=== PATIENT | male | born 1960 | race Caucasian/White ===

== ENCOUNTER → 2017-10-18 13:43 | Outpatient (CLI) | payer MEDICARE, MEDICAID, SELFPAY | PROVIDERS: Family Provider Family Medicine Geriatric Medicine; PCP Family Medicine Geriatric Medicine; Visit Provider Family Medicine Geriatric Medicine | DX: R50.9 Fever, unspecified (principal) | CPT/HCPCS: 87633 ==

== ENCOUNTER → 2018-01-04 10:32 | Outpatient (CLI) | payer MEDICARE, MEDICAID, SELFPAY ==
--- NOTE | 2018-01-04 14:47 | RAD_ITS ---
STUDY: X-RAY - ABDOMEN/PELVIS REASON FOR EXAM: Male, 57 years old. Mentally handicapped, acting out. TECHNIQUE: Chest x-ray same date, prior chest x-ray 07/13/2016, 03/30/2016, 03/25/2016, x-ray abdomen 08/24/2013. COMPARISON: None. FINDINGS: Normal visualized lung bases. No free air. Grossly normal size and position of the solid organs of the abdomen. Moderate stool burden of large bowel, not excessive. Minimal gaseous distention of several loops of small bowel and of the proximal to mid large bowel, with no distention of the descending colon. Loop of prominent gas-filled bowel in the left lower quadrant of the abdomen is probably a loop of sigmoid. Difficult to exclude the possibility of sigmoid volvulus. The appearance is not entirely characteristics, but this sentinel loop of bowel stands out within the abdomen and should be further characterized. Scoliosis and osteopenia. Pelvic fluid was. RAD/Abdomen Single View IMPRESSION: Abnormal bowel loop in the left lower quadrant of the abdomen is nonspecific. This is probably a loop of sigmoid colon. Consider the possibility of early volvulus. A CT abdomen and pelvis with IV and oral contrast may be appropriate at this time depending upon clinical suspicions. If the abdomen is benign in presentation at this time, follow-up x-ray may be entirely appropriate for surveillance purposes. Electronically Signed: Charles Soto, at 15:45 EDT Tel , Service support ,
--- NOTE | 2018-01-04 14:48 | RAD_ITS ---
STUDY: X-RAY CHEST REASON FOR EXAM: Male, 57 years old. Mental handicap. Behavioral changes. TECHNIQUE: PA and lateral chest COMPARISON: 07/13/2016 FINDINGS: The pattern of chronic interstitial prominence in the lungs bilaterally is stable compared to prior imaging since at least 2015 and may reflect a component of pulmonary fibrosis. No prior chest CT is available for further comparison. The lungs are otherwise clear. There is no dense focal infiltrate, effusion or pneumothorax or focal suspicious lesion. No cardiomegaly. Normal mediastinal silhouette, ashish and pleural margins. Thoracolumbar scoliosis. No acute osseous process. No acute upper abdominal process is evident in limited evaluation. There is moderate gaseous distention of a loop of large bowel in the upper abdomen, nonspecific. RAD/Chest PA and Lateral IMPRESSION: Chronic interstitial changes of the lungs are stable long-term. If further characterization is desired, CT chest would be appropriate. No acute cardiopulmonary process is otherwise evident. Electronically Signed: Charles Soto, at 15:42 EDT Tel , Service support ,
[2018-01-04 17:03] LABS: Basophil# 0.03 X10^3/uL; Basophil% 0.6 % (0-1); Eosinophil# 0.12 X10^3/uL; Eosinophils% 2.4 % (0-5); Hematocrit 43.4 % (40-54); Hemoglobin 14.2 g/dl (13.0-16.5); Lymphocyte % 40.7 % (19-41); Mean Corp Hgb Conc 32.7 g/gl (32-36); Mean Corpuscular Hgb 30.3 pg (27.0-32.0); Mean Corpuscular Volume 92.5 fL (80-94); Mean Platelet Vol. 10.5 fl (6.2-12.0); Monocyte# 0.73 X10^3/uL; Monocyte% 14.9 % (0-10); Neutrophil # 2.03 X10^3/uL (2.7-7.7); Neutrophil % 41.4 % (47-70); Platelet Count 281 K/mm3 (150-450); RBC Distribution Width CV 14.1 % (11.6-14.6); RBC Distribution Width SD 46.2 fl (35.1-43.9); Red Blood Count 4.69 M/mm3 (4.6-6.2); White Blood Count 4.9 K/mm3 (4.4-11.0)
[2018-01-04 17:36] LABS: POSITIVE COUNT NO; POSITIVE DIFFERENTIAL NO; POSITIVE MORPHOLOGY NO
[2018-01-04 17:42] LABS: Anion Gap 9 (5-15); BUN 14 mg/dL (7-18); BUN/Creat Ratio 12.5 RATIO (10-20); Calcium,Total 8.9 mg/dL (8.5-10.1); Chloride 106 mmol/L (98-107); Creatinine, Serum 1.12 mg/dL (0.70-1.30); EST Glomerular Filtration Rate 71 mL/min (>60); Est Glom Filt Rate - Afr Amer 86 mL/min (>60); Glucose 133 mg/dL (74-106); Sodium Level 143 mmol/L (136-145)
== END ==
PROVIDERS: Family Provider Family Medicine Geriatric Medicine; PCP Family Medicine Geriatric Medicine; Visit Provider Family Medicine Geriatric Medicine
DX: R10.9 Unspecified abdominal pain (principal); R05 Cough; N39.0 Urinary tract infection, site not specified; R50.9 Fever, unspecified
CPT/HCPCS: 36415; 71046; 74018; 80048; 85025; 87086; 87088; 87633

== ENCOUNTER → 2018-01-24 09:16 | Outpatient (CLI) | payer MEDICARE, MEDICAID, SELFPAY ==
--- NOTE | 2018-01-24 10:21 | RAD_ITS ---
STUDY: X-RAY - ABDOMEN/PELVIS REASON FOR EXAM: Male, 57 years old. Abdominal pain TECHNIQUE: AP supine and upright views of the abdomen and pelvis. COMPARISON: January 04, 2018 FINDINGS: There is a large amount of retained stool in the rectum. There is less gaseous prominence of splenic flexure and descending colon. There appears to be wall thickening of this portion of colon. There is no demonstrated free abdominal air. The visualized liver, spleen and kidneys are grossly normal in size and morphology. Normal soft tissue structures. There are diffuse degenerative changes of the visualized lumbar spine. RAD/Abd Inc Decub and/or Erect IMPRESSION: There is a large amount of retained stool in the rectum. There is less gaseous prominence of splenic flexure and descending colon. There appears to be wall thickening of this portion of colon. Electronically Signed: Luzmaria Willis MD at 10:44 EDT , Service support ,
[2018-01-24 11:28] LABS: Absolute Lymphocyte Count 2.26 X10^3/ul (0.83-4.51); Absolute Neutrophil Count 2.4 X10^3/uL (2.0-7.7); Basophil# 0.04 X10^3/uL; Basophil% 0.7 % (0-1); Eosinophil# 0.06 X10^3/uL; Eosinophils% 1.1 % (0-5); Hematocrit 42.6 % (40-54); Hemoglobin 14.2 g/dl (13.0-16.5); Lymphocyte # 2.26 X10^3/ul (4.0); Lymphocyte % 41.9 % (19-41); Mean Corp Hgb Conc 33.3 g/gl (32-36); Mean Corpuscular Hgb 30.7 pg (27.0-32.0); Monocyte# 0.67 X10^3/uL; Monocyte% 12.4 % (0-10); Neutrophil # 2.35 X10^3/uL (2.7-7.7); Neutrophil % 43.7 % (47-70); Platelet Count 267 K/mm3 (150-450); RBC Distribution Width CV 13.8 % (11.6-14.6); RBC Distribution Width SD 45.5 fl (35.1-43.9); Red Blood Count 4.63 M/mm3 (4.6-6.2); White Blood Count 5.4 K/mm3 (4.4-11.0)
[2018-01-24 11:31] LABS: POSITIVE COUNT NO; POSITIVE DIFFERENTIAL NO; POSITIVE MORPHOLOGY NO
[2018-01-24 11:44] LABS: ALB/GLOB Ratio 0.8 RATIO (0.9-2.4); AST(SGOT) 17 U/L (15-37); Alanine Aminotransfer ALT/SGPT 27 U/L (16-61); Albumin, Serum 3.5 g/dL (3.2-5.0); Alkaline Phosphatase 56 U/L (45-117); Anion Gap 4 (5-15); BUN 18 mg/dL (7-18); BUN/Creat Ratio 15.4 RATIO (10-20); Chloride 106 mmol/L (98-107); Creatinine, Serum 1.17 mg/dL (0.70-1.30); EST Glomerular Filtration Rate 68 mL/min (>60); Est Glom Filt Rate - Afr Amer 82 mL/min (>60); Globulin 4.4 g/dL (2.2-4.2); Glucose 68 mg/dL (74-106); PSA,Total- Diagnostic 0.12 ng/mL (0.0-4.0); Protein, Total 7.9 g/dL (6.4-8.2); Sodium Level 140 mmol/L (136-145); Thyroid Stim Hormone (TSH) 2.07 uIU/mL (0.358-3.74)
[2018-01-24 11:50] LABS: Vitamin D,25 Hydroxy 41.4 ng/mL (29.95-100.01)
[2018-01-25 15:16] LABS: Hep C Antibodies 0.1 s/co ratio (0.0-0.9)
== END ==
PROVIDERS: Family Provider Family Medicine Geriatric Medicine; PCP Family Medicine Geriatric Medicine; Visit Provider Family Medicine Geriatric Medicine
DX: R10.9 Unspecified abdominal pain (principal); E11.9 Type 2 diabetes mellitus without complications; E55.9 Vitamin D deficiency, unspecified; I10 Essential (primary) hypertension; Z12.5 Encounter for screening for malignant neoplasm of prostate; Z13.89 Encounter for screening for other disorder
CPT/HCPCS: 36415; 74019; 80053; 82306; 84153; 84443; 85025; 86803; 87086; 87088

== ENCOUNTER → 2018-07-25 15:04 | Outpatient (CLI) | payer MEDICARE, MEDICAID, SELFPAY ==
[2018-07-25 16:20] LABS: Vitamin D,25 Hydroxy 34.1 ng/mL (29.95-100.01)
[2018-07-25 16:33] LABS: ALB/GLOB Ratio 0.8 RATIO (0.9-2.4); AST(SGOT) 19 U/L (15-37); Alanine Aminotransfer ALT/SGPT 48 U/L (16-61); Albumin, Serum 3.5 g/dL (3.2-5.0); Alkaline Phosphatase 60 U/L (45-117); Anion Gap 11 (5-15); BUN 19 mg/dL (7-18); BUN/Creat Ratio 15.3 RATIO (10-20); Calcium,Total 9.2 mg/dL (8.5-10.1); Chloride 108 mmol/L (98-107); Creatinine, Serum 1.24 mg/dL (0.70-1.30); EST Glomerular Filtration Rate 63 mL/min (>60); Est Glom Filt Rate - Afr Amer 76 mL/min (>60); Globulin 4.6 g/dL (2.2-4.2); Glucose 121 mg/dL (74-106); Potassium 4.1 mmol/L (3.5-5.1); Protein, Total 8.1 g/dL (6.4-8.2); Sodium Level 144 mmol/L (136-145)
[2018-07-25 16:34] LABS: Absolute Lymphocyte Count 1.59 X10^3/ul (0.83-4.51); Absolute Neutrophil Count 1.4 X10^3/uL (2.0-7.7); Basophil# 0.02 X10^3/uL; Basophil% 0.5 % (0-1); Eosinophils% 2.7 % (0-5); Hematocrit 43.3 % (40-54); Hemoglobin 13.6 g/dl (13.0-16.5); Lymphocyte # 1.59 X10^3/ul (4.0); Lymphocyte % 43.7 % (19-41); Mean Corp Hgb Conc 31.4 g/gl (32-36); Mean Corpuscular Hgb 30.5 pg (27.0-32.0); Mean Corpuscular Volume 97.1 fL (80-94); Mean Platelet Vol. 10.9 fl (6.2-12.0); Monocyte# 0.58 X10^3/uL; Monocyte% 15.9 % (0-10); Neutrophil # 1.35 X10^3/uL (2.7-7.7); Neutrophil % 37.2 % (47-70); POSITIVE COUNT NO; POSITIVE DIFFERENTIAL NO; POSITIVE MORPHOLOGY NO; Platelet Count 254 K/mm3 (150-450); RBC Distribution Width CV 13.8 % (11.6-14.6); RBC Distribution Width SD 48.1 fl (35.1-43.9); Red Blood Count 4.46 M/mm3 (4.6-6.2); White Blood Count 3.6 K/mm3 (4.4-11.0)
== END ==
PROVIDERS: Family Provider Family Medicine Geriatric Medicine; PCP Family Medicine Geriatric Medicine; Visit Provider Family Medicine Geriatric Medicine
DX: E11.9 Type 2 diabetes mellitus without complications (principal); E55.9 Vitamin D deficiency, unspecified; I10 Essential (primary) hypertension
CPT/HCPCS: 36415; 80053; 82306; 84443; 85025

== ENCOUNTER → 2018-09-02 10:21 | Outpatient (CLI) | payer MEDICARE, MEDICAID, SELFPAY ==
[2018-09-02 12:30] LABS: Absolute Lymphocyte Count 1.46 X10^3/ul (0.83-4.51); Absolute Neutrophil Count 1.4 X10^3/uL (2.0-7.7); Basophil# 0.03 X10^3/uL; Basophil% 0.8 % (0-1); Eosinophil# 0.09 X10^3/uL; Eosinophils% 2.3 % (0-5); Hematocrit 41.2 % (40-54); Hemoglobin 13.1 g/dl (13.0-16.5); Lymphocyte # 1.46 X10^3/ul (4.0); Lymphocyte % 36.6 % (19-41); Mean Corp Hgb Conc 31.8 g/gl (32-36); Mean Corpuscular Hgb 30.3 pg (27.0-32.0); Mean Corpuscular Volume 95.4 fL (80-94); Mean Platelet Vol. 10.6 fl (6.2-12.0); Monocyte# 1.04 X10^3/uL; Monocyte% 26.1 % (0-10); Neutrophil # 1.36 X10^3/uL (2.7-7.7); Neutrophil % 33.9 % (47-70); Platelet Count 250 K/mm3 (150-450); RBC Distribution Width CV 13.2 % (11.6-14.6); Red Blood Count 4.32 M/mm3 (4.6-6.2)
[2018-09-02 12:42] LABS: POSITIVE COUNT NO; POSITIVE DIFFERENTIAL NO; POSITIVE MORPHOLOGY NO
[2018-09-02 12:50] LABS: ALB/GLOB Ratio 0.8 RATIO (0.9-2.4); AST(SGOT) 20 U/L (15-37); Alanine Aminotransfer ALT/SGPT 37 U/L (16-61); Albumin, Serum 3.5 g/dL (3.2-5.0); Alkaline Phosphatase 57 U/L (45-117); Anion Gap 5 (5-15); BUN 17 mg/dL (7-18); Calcium,Total 8.6 mg/dL (8.5-10.1); Chloride 109 mmol/L (98-107); Creatinine, Serum 1.31 mg/dL (0.70-1.30); EST Glomerular Filtration Rate 59 mL/min (>60); Est Glom Filt Rate - Afr Amer 72 mL/min (>60); Globulin 4.3 g/dL (2.2-4.2); Glucose 80 mg/dL (74-106); Potassium 4.2 mmol/L (3.5-5.1); Protein, Total 7.8 g/dL (6.4-8.2); Sodium Level 139 mmol/L (136-145); Thyroid Stim Hormone (TSH) 2.97 uIU/mL (0.358-3.74)
== END ==
PROVIDERS: Family Provider Family Medicine Geriatric Medicine; PCP Family Medicine Geriatric Medicine; Visit Provider Family Medicine Geriatric Medicine
DX: F05 Delirium due to known physiological condition (principal)
CPT/HCPCS: 36415; 80053; 84443; 85025

== ENCOUNTER 2018-11-01 18:35 | Emergency (ER) | payer MEDICARE, MEDICAID, SELFPAY ==
[2018-11-01 18:38] VITALS: BP 138/100; PULSE 100; RESP 18; TEMP 36.8; O2SAT 95; BMI 27.8
--- NOTE | 2018-11-01 18:53 | RAD_ITS ---
STUDY: X-RAY - RIGHT SHOULDER REASON FOR EXAM: Male, 58 years old. Injury and pain TECHNIQUE: 2 view(s) of the shoulder. COMPARISON: None. FINDINGS: Comminuted fracture of the proximal humerus centered at the level of the surgical neck. Degenerative glenohumeral changes. Calcific tendinitis of the right shoulder. Soft tissue swelling. RAD/Shoulder min 2 Views IMPRESSION: Comminuted fracture of the proximal humerus centered at the level of the surgical neck. Electronically Signed: Chang Bauer MD at 19:14 EDT Tel , Service support ,
--- NOTE | 2018-11-01 21:07 | ED.DCSUM_ITS ---
- ER Visit Summary Date of Service: 11/01/18 Chief Complaint: Right shoulder pain History of Present Illness: The patient is a 58 M with profound mental retardation. He presents from his care home. He had outpatient x-rays of his right shoulder that showed a fracture. snf staff and family think the patient may have fallen this week. He may have landed on his right shoulder. They are not sure how he injured his shoulder, and the patient only speaks a couple words. He is not able to elaborate. Otherwise he has been acting normally. No other apparent pain or issues. Physical Examination: Afebrile and vitals unremarkable. Head and neck atraumatic. Right shoulder is mildly swollen. Compartments are soft. There is some ecchymosis noted around his proximal and mid upper arm. He is neurovascular intact distally. Elbow and distal structures are atraumatic and n ontender. Left upper extremity atraumatic. Chest is nontender. Heart regular. Lungs clear. Abdomen soft. Back nontender. Lower extremities atraumatic. Test Results: X-rays of the shoulder show a comminuted humeral head fracture, with a fracture through the surgical neck. Emergency Department Course and Treatment: X-rays discussed with Dr. Nobles. Patient placed in a sling. Treated with pain medicine. Referred for outpatient follow-up. Treatment Plan: As above Disposition: Discharge Impression: 1. Right proximal humerus fracture This note was generated with [email or web address] dictation software. It may contain incorrect words, spelling, and punctuation that were not noted in review of the chart prior to signing ED Disposition - Plan for ED Patient: Disposition: Home or Assisted Living Instructions: ED Fx Shoulder Prescriptions: Hydrocodone Bitart/Apap 5-325 [[place] 5MG-325MG] 1 tab PO Q6H PRN PRN 3 Days #10 tab PRN Reason: Pain Referrals: Jaylene Nobles DO [STAFF PHYSICIAN] -
--- NOTE | 2018-11-01 21:07 | ED.DEP ---
ED Disposition - Plan for ED Patient: Instructions: ED Fx Shoulder Prescriptions: Hydrocodone Bitart/Apap 5-325 [[place] 5MG-325MG] 1 tab PO Q6H PRN PRN 3 Days #10 tab PRN Reason: Pain Referrals: Jaylene Nobles DO [STAFF PHYSICIAN] -
[2018-11-01 21:28] VITALS: BP 131/78; PULSE 69; RESP 16; O2SAT 98
== END 2018-11-01 21:29 | disposition home or self-care (01) ==
PROVIDERS: Emergency Provider Emergency Medicine; Family Provider Family Medicine; PCP Family Medicine
DX: S42.201A Unspecified fracture of upper end of right humerus, initial encounter for closed fracture (principal); S42.211A Unspecified displaced fracture of surgical neck of right humerus, initial encounter for closed fracture; X58.XXXA Exposure to other specified factors, initial encounter; Y93.9 Activity, unspecified; Y92.9 Unspecified place or not applicable; F79 Unspecified intellectual disabilities; E11.9 Type 2 diabetes mellitus without complications; G40.909 Epilepsy, unspecified, not intractable, without status epilepticus; N40.0 Benign prostatic hyperplasia without lower urinary tract symptoms; Z79.84 Long term (current) use of oral hypoglycemic drugs; Z79.899 Other long term (current) drug therapy
CPT/HCPCS: 73030; 99283

== ENCOUNTER → 2018-11-10 | Outpatient (CLI) | payer MEDICARE, MEDICAID, SELFPAY ==
[2018-11-10 10:13] VITALS: BMI 27.8
--- NOTE | 2018-11-10 10:15 | RAD_ITS ---
STUDY: X-RAY - RIGHT SHOULDER REASON FOR EXAM: Male, 58 years old. Fall, fracture TECHNIQUE: 3 view(s) of the shoulder. COMPARISON: 11/01/2018 FINDINGS: There is moderate degenerative arthrosis of the glenohumeral articulation. Normal acromioclavicular joint. Normal acromion. No significant change of impacted comminuted fracture of the humeral neck. Small osseous fragments along the fracture site and at the glenohumeral space. There is generalized osteopenia. There is soft tissue swelling. Normal visualized pulmonary apex. RAD/Shoulder min 2 Views IMPRESSION: No significant change of comminuted fracture proximal humeral neck. Osteopenia. Moderate degenerative changes of the glenohumeral joint. Osseous fragment in the humeral acromial space. Electronically Signed: Mary Broderick MD at 23:09 EDT , Service support ,
== END | disposition home or self-care (01) ==
PROVIDERS: Family Provider Family Medicine; PCP Family Medicine; Visit Provider Physician Assistant
DX: S42.211A Unspecified displaced fracture of surgical neck of right humerus, initial encounter for closed fracture (principal)
CPT/HCPCS: 73030

== ENCOUNTER → 2018-11-10 | Outpatient (CLI) | payer MEDICARE, MEDICAID, SELFPAY ==
[2018-11-03 09:50] VITALS: BMI 27.8
== END | disposition home or self-care (01) ==
LOC: HPRAD 10:10
PROVIDERS: Family Provider Family Medicine; PCP Family Medicine; Referring Provider Physician Assistant; Visit Provider Physician Assistant
DX: Z00.00 Encounter for general adult medical examination without abnormal findings (principal)

== ENCOUNTER → 2018-11-25 | Outpatient (CLI) | payer MEDICARE, MEDICAID, SELFPAY ==
[2018-11-10 10:13] VITALS: BMI 27.8
--- NOTE | 2018-11-25 09:18 | RAD_ITS ---
STUDY: X-RAY - RIGHT SHOULDER REASON FOR EXAM: Male, 58 years old. Follow-up fracture TECHNIQUE: 3 view(s) of the shoulder. COMPARISON: 11/10/2018 FINDINGS: Normal glenohumeral articulation. Normal acromioclavicular joint. Normal acromion. Healing impacted fracture of the humeral neck with callus formation. The soft tissue structures are unremarkable. Normal visualized pulmonary apex. RAD/Shoulder min 2 Views IMPRESSION: Healing impacted humeral neck fracture. Electronically Signed: Charles Crabtree MD at 15:54 EDT Tel , Service support ,
== END | disposition home or self-care (01) ==
LOC: HPRAD 09:15
PROVIDERS: Family Provider Family Medicine; PCP Family Medicine; Referring Provider Physician Assistant; Visit Provider Physician Assistant
DX: S42.224D 2-part nondisplaced fracture of surgical neck of right humerus, subsequent encounter for fracture with routine healing (principal)
CPT/HCPCS: 73030

== ENCOUNTER → 2018-12-26 | Outpatient (CLI) | payer MEDICARE, MEDICAID, SELFPAY ==
[2018-11-25 09:27] VITALS: BMI 27.8
--- NOTE | 2018-12-26 09:20 | RAD_ITS ---
STUDY: X-RAY - RIGHT SHOULDER REASON FOR EXAM: Male, 58 years old. Fracture TECHNIQUE: 2 view(s) of the shoulder. COMPARISON: 25 December 2018 FINDINGS: Acromioclavicular joint is located. Glenohumeral joint is located. There is subacute impacted healing fracture of the humeral neck with osteoneogenesis. Mineralization is low. Appearance is similar to prior. RAD/Shoulder min 2 Views IMPRESSION: Subacute stage union in progress of proximal humeral fracture. Osteoporosis. Electronically Signed: Chris Ly, at 18:08 EDT Tel , Service support ,
== END | disposition home or self-care (01) ==
LOC: HPRAD 09:19
PROVIDERS: Family Provider Family Medicine; PCP Family Medicine; Visit Provider Physician Assistant
DX: S42.224D 2-part nondisplaced fracture of surgical neck of right humerus, subsequent encounter for fracture with routine healing (principal)
CPT/HCPCS: 73030

== ENCOUNTER → 2019-01-11 | Outpatient (CLI) | payer MEDICARE, MEDICAID, SELFPAY ==
[2018-11-25 09:27] VITALS: BMI 27.8
[2018-12-26 09:53] VITALS: BMI 27.8
--- NOTE | 2019-01-11 13:30 | SP.MBSS_ITS ---
PRIMARY / SECONDARY DIAGNOSIS: dysphagia (R13.10) REFERRING PHYSICIAN: Dr. Edilson Bhakta MD CURRENT DIET: mechanical soft textures, honey thickened liquids DENTITION: natural; suboptimal MENTAL STATUS: impaired RESPIRATORY STATUS: O2 via room air REASON FOR REFERRAL: The Patient is a 58 year old male referred for a modified barium swallow (MBS) study to objectively assess the Patients oropharyngeal swallow function under fluoroscopy to assess current diet texture tolerance and appropriateness for PO diet texture upgrade. Patients caregivers present, Patient notably cognitively impaired due to non-specific developmental event; no changes in PO intake abilities reported by caregiver. MEDICAL HISTORY: Unspecified anoxic event, developmentally disabled with severe intellectual disability and chronic nonverbal status, moderate oropharyngeal dysphagia, history of a cerebrovascular accident, hypertension, hyperlipidemia, type II diabetes mellitus, benign prostate hyperplasia, chronic constipation, insomnia, and fatigue. PREVIOUS MODIFIED BARIUM SWALLOW STUDY: 12/18/2018 MBS revealed moderate oropharyngeal dysphagia (DSRS: 4; SPS: 4) with consistent deep penetration (thin liquids) and shallow penetration (nectar thickened liquids) without complete ejection. ASSESSMENT PARAMETERS: The Patient participated in a Modified Barium Swallow (MBS) study on 01/11/2019. Dr. Faustin was the radiologist present for this evaluation. This study was recorded in the lateral view and images were sent to PACs for storage. Scoring was completed through each trial using the 8-point Penetration-Aspiration Scale (PAS) and Videofluoroscopic Scale Score (VSS), and summarized via the Modified Barium Swallow Impairment Profile (MBSImP), with severity scoring through the Dysphagia Severity Rating Scale (DSRS) and the Swallowing Performance Scale (PSP), and recommended diet textures through the International Dysphagia Diet Standardisation Initiative (IDDSI). RESULTS OF THE EVALUATION: The Patient presents with moderate oropharyngeal dysphagia (DSRS: 4; SPS: 5) with grade III SILENT aspiration of thin liquids and grade III overt aspiration of nectar thickened liquids. OBJECTIVE ASSESSMENT OF SWALLOW FUNCTION (QUANTITATIVE ? PER TRIAL): PENETRATION / ASPIRATION SCALE (CHRISTIE): 1 = does not enter airway 2 = enters airway/above vocal folds/ejected 3 = enters airway/above vocal folds/not ejected 4 = enters airway/contacts vocal folds/ejected 5 = enters airway/contacts vocal folds/not ejected 6 = enters airway/below vocal folds/ejected 7 = enters airway/below vocal folds/not ejected despite effort 8 = enters airway/below vocal folds/no effort VIDEOFLOROSCOPIC SCALE SCORE (CHRISTIE): Grade I = aspiration of material that has penetrated into the laryngeal vestibule, intact cough reflex Grade II = aspiration < 10 % of the bolus, intact cough reflex Grade III = aspiration of < 10 % of the bolus, reduced cough reflex or aspiration of > 10 % of the bolus, intact cough reflex Grade IV = aspiration of > 10 % of the bolus, reduced cough reflex PENETRATION / ASPIRATION SCALE (SCORE) WITH VIDEOFLOROSCOPIC SCALE SCORE: Thin liquid - 5 mL tsp.: 1 Thin liquids via cup (single sip): 8 - Grade III Prosser thickened liquids via cup (single sip): 1 Prosser thickened liquids via cup (single sip): 7 - Grade III Honey thickened liquids via cup (single sip): 1 Honey thickened liquids via cup (single sip): 1 Honey thickened liquids via cup (single sip): 1 Pudding via spoon: 1 Regular textured cookie: 1 Honey thickened liquids via cup (single sip): 1 Honey thickened liquids via cup (single sip): 1 OBJECTIVE ASSESSMENT OF SWALLOW FUNCTION (QUANTITATIVE ? AGGREGATE): MODIFIED BARIUM SWALLOW IMPAIRMENT PROFILE (MBSImP) LABIAL SEAL: 4 (of 4) escape beyond mid chin TONGUE CONTROL: 2 (of 3) posterior escape < 50% BOLUS PREPARATION / MASTICATION: 1 (of 3) slow prolonged; complete recollection BOLUS TRANSPORT / LINGUAL MOTION: 1 (of 4) delayed initiation of motion ORAL RESIDUE: 1 (of 4) trace residue lining oral structures INITIATION OF PHARYNGEAL SWALLOW: 2 (of 4) posterior surface of epiglottis SOFT PALATE ELEVATION: 0 (of 4) no bolus between soft palate & pharyngeal wall LARYNGEAL ELEVATION: 1 (of 3) partial superior movement / approximation ANTERIOR HYOID EXCURSION: 1 (of 2) partial movement EPIGLOTTIC MOVEMENT: 1 (of 2) partial inversion LARYNGEAL VESTIBULE CLOSURE: 1 (of 2) incomplete closure PHARYNGEAL STRIPPING WAVE: 0 (of 2) present / complete PE SEGMENT OPENIN (of 3) complete distension / duration; no obstruction TONGUE BASE RETRACTION: 1 (of 4) trace column of contrast PHARYNGEAL RESIDUE: 1 (of 4) trace residue ESOPHAGEAL BOLUS CLEARANCE: could not view DYSPHAGIA SEVERITY RATING SCALE (DSRS): 4 (moderate) SWALLOWING PERFORMANCE SCALE (SPS): 5 (moderate) OBJECTIVE ASSESSMENT OF SWALLOW FUNCTION (QUALITATIVE): ORAL PREPARATORY PHASE: mild (albeit effective) mastication inefficiency with prolonged mastication; impaired anterior bolus containment during oral presentation / oral manipulation with intermittent albeit significant anterior bolus loss; preserved management of breathing / bolus formation. ORAL TRANSITIONAL PHASE: intermittent oral phase swallow onset delay (3 seconds in length max); overall sufficient oral clearance; intermittent premature posterior bolus loss. PHARYNGEAL PHASE: pharyngeal swallow dyssynchrony resulting in pre-prandial penetration and subsequent aspiration of thin and nectar thickened liquids; mild reduction in hyolaryngeal excursion resulting in inconsistent laryngeal vestibule pressure generated to expel penetrated material; no signs of pharyngeal dysmotility; no signs of velopharyngeal impairments; ESOPHAGEAL PHASE: no obvious esophageal phase abnormalities observed. CONTRIBUTING / COMPLICATING FACTORS AND NOTABLE FINDINGS: weak cued volitional cough intensity generated to expel penetrated material (dystussia); absent cough in response to tracheobronchial aspiration of thin liquids (atussia) with a rather weak and delayed cough response to aspiration of nectar thickened liquids (dystussia). RESPONSE TO STRATEGIES: unable to follow directions to execute under fluoroscopy. INTERVENTION RECOMMENDATIONS AND CONSIDERATIONS: The Patient was noted to SILENTLY aspirate with thin liquids, with clinical assessment at bedside relying on identification of classic overt signs and symptoms of aspiration considered unreliable; response to aspiration of nectar thickened liquids was quite delayed (~5-10 seconds post event) and inadequate in regards to intensity, would also question the sufficiency of informal assessment methods with this viscosity. Results overall very similar to prior study, with exception of visualized aspiration. Would consider further skilled speech-language intervention targeting diet texture management and training / implementation of recommended compensatory strategies; and Patient / caregiver education regarding safe PO intake strategies (visual cueing, consistently, visual models). POST ASSESSMENT EDUCATION: Results and recommendations were discussed with the Patient and Patients caregiver immediately following MBS completion, with the Patients caregiver verbalizing understanding and agreement with all recommendations and education provided. DIET TEXTURE RECOMMENDATIONS: Will recommend a mechanical soft textured (IDDSI: 5), honey thickened liquid (IDDSI: 3) diet RECOMMENDED COMPENSATORY STRATEGIES: Direct supervision, consider cutting tougher textures into bite sized pieces, reduced bolus volume / rate of ingestion, seated upright at 90 degrees during PO intake, remain upright for 30-60 minutes post meal (GERD precaution) IMAGE COUNT: [id number] Bg Powers M.A., [employer] ENGINEER MBSImP Certified, LSVT Certified [facility] Speech-Language Pathology Department [email or web address]
--- NOTE | 2019-01-11 14:00 | RAD_ITS ---
STUDY: SWALLOWING STUDY REASON FOR EXAM: Male, 58 years old. Dysphagia TECHNIQUE: The examination was performed with Speech Pathology in attendance. Under fluoroscopic observation, the patient ingested thin barium, thick barium, barium pudding, and barium coated cracker. FLUOROSCOPY TIME: 0:02 minutes/seconds RADIOLOGIST INVOLVEMENT: Radiologist was not present during the procedure, but did review the images. COMPARISON: None. FINDINGS: The following was observed during swallowing of the various mixtures of barium: Thin Barium: There was one episode of jeffrey silent aspiration with thin barium when it was ingested to help clear the barium coated cracker. When patient swallowed only thin barium, there was early pharyngeal penetration but no jeffrey aspiration noted. Thick Barium: There was no evidence of aspiration or laryngeal penetration. Barium Pudding: There was no evidence of aspiration or laryngeal penetration. Barium Coated Cracker: There was no evidence of aspiration or laryngeal penetration. RAD/Swallowing Function w/Video IMPRESSION: 1 episode of silent aspiration with thin barium noted. The swallow study findings were discussed with the patient by the speech pathologist at the conclusion of the examination. Please see speech pathology report for more information and recommendations. The procedure was performed by Bg William speech therapist Electronically Signed: Nasim Faustin MD at 14:33 EDT , Service support ,
== END | disposition home or self-care (01) ==
PROVIDERS: Family Provider Family Medicine; PCP Family Medicine; Referring Provider Family Medicine; Visit Provider Family Medicine
DX: R13.10 Dysphagia, unspecified (principal)
CPT/HCPCS: 74230; 92611

== ENCOUNTER → 2020-08-21 15:00 | Outpatient (CLI) | payer MEDICARE, MEDICAID, SELFPAY ==
[2020-08-08 11:15] VITALS: BMI 26.1
--- NOTE | 2020-08-21 15:04 | CT_ITS ---
STUDY: CT BRAIN WITHOUT CONTRAST REASON FOR EXAM: Male, 60 years old. mental retardation; epilepsy RADIATION DOSAGE (If Supplied By Facility): CTDIvol = ( 44.99 ) mGy, DLP = ( 880.47 ) mGycm TECHNIQUE: Transaxial CT imaging of the brain was performed without administration of intravenous contrast material. Individualized dose optimization techniques were used for this CT. COMPARISON: CT head 09/30/2010 FINDINGS: Normal soft tissue structures. Normal calvarium. There is moderate cerebral atrophy with widening of the extra-axial spaces and ventricular dilatation. There are areas of decreased attenuation within the white matter tracts of the supratentorial brain, consistent with microvascular disease changes. Normal basal ganglia and thalami. Normal brainstem. Normal cerebellum. There is no intracranial hemorrhage. There are no findings of an acute ischemic infarction. Normal visualized paranasal sinuses. CT/Brain/Head without Contrast IMPRESSION: Chronic involutional changes of the brain. Electronically Signed: Liu Parry MD at 15:56 EST Tel , Service support ,
== END ==
PROVIDERS: PCP Family Medicine; Referring Provider Psychiatry & Neurology Neurology; Visit Provider Psychiatry & Neurology Neurology
DX: F48.9 Nonpsychotic mental disorder, unspecified (principal); F69 Unspecified disorder of adult personality and behavior; G40.909 Epilepsy, unspecified, not intractable, without status epilepticus
CPT/HCPCS: 70450

== ENCOUNTER → 2020-10-04 13:12 | Outpatient (CLI) | payer MEDICARE, MEDICAID, SELFPAY ==
[2020-08-08 11:15] VITALS: BMI 26.1
--- NOTE | 2020-10-04 13:42 | ST.MBS ---
Modified Barium Swallow - Patient Information Study Date: 10/04/20 Study Time: 13:00 Direct Billable Minutes: 120 Total Minutes procedure & reportin Diagnosis: oropharyngeal dysphagia (R13.12) Referring Physician: Edilson Bhakta Reason for Referral: The patient was referred for a repeat modified barium swallow (MBS) study to objectively assess oropharyngeal swallow function under fluoroscopy and determine presence and/or degree of aspiration. Patients caregiver, Tamica present. Medical History: Patient is a 60/m with a past medical history of diabetes mellitus, epilepsy, frequent urinary tract infections, profound mental retardation, depression, anxiety and behavior disorder. At pt's baseline, his ability to verbalize is very limited. Pt has difficulty following commands. Pt has history of dysphagia and is currently on a mechanical soft dietnectar thickened liquid diet per caregiver. Previous MBS study was completed at [facility] in December 2018 recommending honey (moderately) thickened liquids and mechanical soft textures. Current Diet Ordered: mechanical soft textures/honey thick liquids Dentition: Natural Teeth - only upper natural teeth present; edentulous on bottom, Missing Teeth Mental Status: Impaired Respiratory Status: Oxygenating on Room Air - Study Findings Consistencies: Thin Liquid, [place] Thick Liquid, Honey Thick Liquid, Pudding, Cookie - Penetration-Aspiration Scale Penetration-Aspiration Scale: OBJECTIVE ASSESSMENT OF SWALLOW FUNCTION (QUANTITATIVE ? PER TRIAL): PENETRATION / ASPIRATION SCALE (CHRISTIE): 1 = does not enter airway 2 = enters airway/above vocal folds/ejected 3 = enters airway/above vocal folds/not ejected 4 = enters airway/contacts vocal folds/ejected 5 = enters airway/contacts vocal folds/not ejected 6 = enters airway/below vocal folds/ejected 7 = enters airway/below vocal folds/not ejected despite effort 8 = enters airway/below vocal folds/no effort - Penetration-Aspiration Scale Score Thin Liquid via teaspoon Result: 1= does not enter airway Thin Liquid via teaspoon Trial 2 Result: 4= enters airway/contacts vocal folds/ejected Thin Liquid via sequential sips from cup Result: 5= enters airways/contacts vocal folds/not ejected - pt cued for small single sip but was unable to follow command [place]grass Thick Liquid via large single sip from cup Result: 5= enters airways/contacts vocal folds/not ejected Honey Thick Liquid via large single sip from cup Result: 5= enters airways/contacts vocal folds/not ejected Pudding via teaspoon Result: 1= does not enter airway Cookie Result: 1= does not enter airway Honey Thick Liquid via small single sip from cup Result: 1= does not enter airway - Oral Phase Labial Seal: Escape beyond mid-chin Tongue Control During Bolus Hold: Posterior escape of less than half of bolus Bolus Preparation/Mastication: Slow prolonged chewing/mashing with complete recollection Bolus Transport/Lingual Motion: Slowed tongue motion Oral Residue: Residue collection on oral structures - Pharyngeal Phase Initiation of Pharyngeal Swallow: Bolus head at posterior laryngeal surgace of epiglottis Soft Palate Elevation: No bolus between soft palate and pharyngeal wall Laryngeal Elevation: Partial superior movement thyroid cart/partial apprx aryt-epig petiole Anterior Hyoid Excursion: Partial anterior movement Epiglottic Movement: Partial inversion Laryngeal Vestibule Closure at Height of Swallow: Incomplete; narrow column of air/contrast in laryngeal vestibule Pharyngeal Stripping Wave: Present - diminished Pharyngoesophageal Segment Opening: Parital distension and partial duration; parital obstruction of flow Tongue Base Retraction: Narrow column of contrast between tongue base & post. pharyngeal wall Pharyngeal Residue: Trace residue within or on pharyngeal structures - Esophageal Phase Esophageal Clearance: Esophageal retention - Diagnosis/Impression Diagnosis: moderate-severe oropharyngeal dysphagia (R13.12) Impression: The Patient was noted to have penetration to the vocal cords without ejection with thin liquid, nectar thick liquid, and honey thick liquid trials. When smaller sip of honey thickened liquid was consumed there was no aspiration or penetration present. However, pt unable to follow commands to take smaller sips and did so randomly. The patient demonstrated slowed mastication of solid Yasmin Doone cookie with mild oral residue remaining. Would consider further skilled speech-language intervention targeting diet texture management and training, compensatory strategy training for both patient and caregivers, and teaching of use of volume control cup (i.e. Provale cup) to limit sip sizes for safer swallowing and decrease risk of aspiration. - Recommendations Diet: Honey-thick Liquids Comment: minced and moist textures (IDDSI 5) Compensatory Strategies: Small Bites, Small Sips, No Straws, Slow Rate, Sitting upright, Remain sitting upright for 30 minutes after PO intake, Minimize/decrease distractions Supervision: 1:1 Close Supervision Recommend Repeat Modified Barium Swallow: TBD Need for Skilled Speech Therapy Services: Yes Education Completed: 1. Described result of evaluation. - Status Active ST Patient: Active - Contact Information [facility] Speech Therapy:: Rosetta Gillespie MA, CCC-[employer]CURY RECOVERER [address] [id number] [email or web address]
[2020-10-04 15:22] LABS: Hematocrit 40.8 % (40-54); Hemoglobin 12.7 g/dL (13.0-16.5); Mean Corp Hgb Conc 31.1 g/dL (32-36); Mean Corpuscular Hgb 30.2 pg (27.0-32.0); Mean Corpuscular Volume 96.9 fL (80-94); Mean Platelet Vol. 10.6 fl (6.2-12.0); Platelet Count 248 K/mm3 (150-450); RBC Distribution Width CV 13.5 % (11.6-14.6); RBC Distribution Width SD 47.9 fl (35.1-43.9); Red Blood Count 4.21 M/mm3 (4.6-6.2); White Blood Count 3.6 K/mm3 (4.4-11.0)
[2020-10-04 15:51] LABS: Valproic Acid (Depakene) Level 72 ug/mL (50-100)
[2020-10-04 16:15] LABS: ALB/GLOB Ratio 0.7 RATIO (0.9-2.4); AST(SGOT) 18 U/L (15-37); Alanine Aminotransfer ALT/SGPT 22 U/L (16-61); Albumin, Serum 3.1 g/dL (3.2-5.0); Alkaline Phosphatase 89 U/L (45-117); Anion Gap 6 (5-15); BUN 18 mg/dL (7-18); BUN/Creat Ratio 16.1 RATIO (10-20); Calcium,Total 8.6 mg/dL (8.5-10.1); Chloride 105 mmol/L (98-107); Creatinine, Serum 1.12 mg/dL (0.70-1.30); EST Glomerular Filtration Rate 71 mL/min (>60); Est Glom Filt Rate - Afr Amer 85 mL/min (>60); Globulin 4.7 g/dL (2.2-4.2); Glucose 85 mg/dL (74-106); Potassium 3.9 mmol/L (3.5-5.1); Protein, Total 7.8 g/dL (6.4-8.2); Sodium Level 138 mmol/L (136-145); Thyroid Stim Hormone (TSH) 2.06 uIU/mL (0.358-3.74)
[2020-10-04 16:21] LABS: Vitamin B12 535 pg/mL (211-911)
[2020-10-08 15:56] LABS: Vitamin D 1,25-Dihydroxy 58.1 pg/mL (19.9-79.3)
[2020-10-12 12:07] LABS: Vitamin B1, Thiamine 142.3 nmol/L (66.5-200.0)
[2020-10-12 12:35] LABS: Trileptal-Oxcarbazepine 19 ug/mL (10-35)
== END ==
PROVIDERS: Psychiatry & Neurology Neurology; PCP Family Medicine; Referring Provider Family Medicine; Visit Provider Family Medicine
DX: R13.12 Dysphagia, oropharyngeal phase (principal); G40.909 Epilepsy, unspecified, not intractable, without status epilepticus; F73 Profound intellectual disabilities; F41.9 Anxiety disorder, unspecified; G21.11 Neuroleptic induced parkinsonism
CPT/HCPCS: 36415; 74230; 80053; 80164; 82140; 82542; 82607; 82652; 82746; 84425; 84443; 85027; 92611

== ENCOUNTER 2021-04-02 20:32 | Emergency (ER) | payer MEDICARE, MEDICAID, SELFPAY ==
[2021-04-02 20:34] VITALS: BP 107/76; PULSE 73; TEMP 36.9; BMI 23.8
[2021-04-02 20:37] VITALS: O2SAT 97
[2021-04-02 20:38] VITALS: BP 107/76; PULSE 73; TEMP 36.9; O2SAT 96
--- NOTE | 2021-04-02 20:49 | EX.ED.DYSGE1 ---
HPI History of Present Illness Chief Complaint: Shortness of Breath Informant: other (alf staff member) Onset/Context/Timing Onset: Yesterday Current Severity: Mild Maximum Severity: Mild Narrative Narrative: Patient presents via EMS secondary to shortness of breath and cough. He developed cough and congestion yesterday. He tested positive for Covid today at [facility]. Tonight his O2 sats were reportedly between 84 and 87%. EMS was called. EMS notes his O2 sats were between 92 and 97% for them. Patient is nonverbal at baseline. He was reportedly recently diagnosed with idiopathic pulmonary fibrosis, but was told that the disease started in 2019. He is DNR comfort care. 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 Cerebrovascular disease Controlled type 2 diabetes mellitus without complication, with long-term current use of insulin GERD (gastroesophageal reflux disease) Hematuria Hemorrhage of gastrointestinal tract, unspecified High cholesterol History of UTI Hyperlipidemia, mixed Internal hemorrhoids without mention of complication IPF (idiopathic pulmonary fibrosis) Mental disorder Mood disorder Neurogenic pruritus Neuroleptic induced parkinsonism Profound intellectual disabilities Renal cyst Unspecified constipation Unspecified intellectual disabilities Urinary retention 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 Vitamin D deficiency Home Medications simvastatin 40 mg PO QHS 11/01/18 [History Last Taken Unknown] sitagliptin 100 mg PO DAILY 11/01/18 [History Last Taken Unknown] tamsulosin 0.8 mg PO QHS 11/01/18 [History Last Taken Unknown] buspirone 5 mg tablet 5 mg PO BID tab 08/08/20 [History Last Taken Unknown] finasteride 5 mg tablet 5 mg PO DAILY tab 08/08/20 [History Last Taken Unknown] omeprazole 40 mg capsule,delayed release 40 mg PO DAILY 08/08/20 [History Last Taken Unknown] magnesium oxide 400 mg (241.3 mg magnesium) tablet 400 mg PO DAILY tablet 10/10/20 [History Last Taken Unknown] bismuth subsalicylate 262 mg/15 mL oral suspension 262 mg PO Q6H ml 02/11/21 [History Last Taken Unknown] ergocalciferol (vitamin D2) 1,250 mcg (50,000 unit) capsule 50,000 unit PO QMONTH cap 02/11/21 [History Last Taken Unknown] oxcarbazepine 300 mg tablet 300 mg PO BID #60 tablet 02/11/21 [Rx Last Taken Unknown] quetiapine 25 mg tablet 25 mg PO BID 02/11/21 [History Last Taken Unknown] aspirin 81 mg tablet,delayed release 81 mg PO DAILY #30 tablet 02/25/21 [Rx Last Taken Unknown] dexamethasone [Decadron] 6 mg PO DAILY #10 tab 04/02/21 [Rx Last Taken Unknown] divalproex 500 mg PO BID 04/02/21 [History Last Taken Unknown] guaifenesin [Mucus Relief ER] mg PO 04/02/21 [History Last Taken Unknown] loratadine 10 mg PO DAILY PRN 04/02/21 [History Last Taken Unknown] Allergy/AdvReac Type Severity Reaction Status Date / Time sulfamethoxazole Allergy Hives Verified 04/02/21 20:38 [From Bactrim] trimethoprim [From Bactrim] Allergy Hives Verified 04/02/21 20:38 Family History Other Alcoholism Angina at rest Asthma Depression Diabetes High cholesterol Pancreatic cancer Surgical History History of cataract surgery History of prostate laser surgery Social History Smoking Status: Never smoker Electronic Cigarette Use: not used alcohol intake: never ROS ROS ED Review of Systems ROS Unobtainable: due to mental status EXAM Physical Exam Const Vital Signs: 04/02/21 20:34 04/02/21 20:37 04/02/21 20:38 Temperature 98.4 F 98.4 F Temperature Source Oral Oral Pulse Rate 73 73 Respiratory Rate Respiratory Effort Normal Respiratory Pattern Normal Blood Pressure 107/76 107/76 Blood Pressure Mean 86 86 Pulse Ox 96 Oxygen Delivery Method Room Air Room Air 04/02/21 21:25 04/02/21 22:17 Temperature 98.4 F 98.1 F Temperature Source Oral Oral Pulse Rate 72 68 Respiratory Rate 15 17 Respiratory Effort Respiratory Pattern Blood Pressure 107/84 H 92/72 Blood Pressure Mean 91 78 Pulse Ox 94 Oxygen Delivery Method Room Air Room Air Positive well nourished and well developed General Appearance ED: well developed HEENT Reports moist mucous membranes Eyes PERRL and EOMs intact bilaterally Chest Wall inspection of chest normal and palpation of chest normal Resp normal respiratory effort and clear to auscultation bilaterally Cardio regular rate and regular rhythm GI normal to inspection, nondistended, normoactive bowel sounds and non-tender Palpation: soft Psych Psych Narrative: Alert and interactive with alf staff member. Skin no rashes or lesions noted MDM MDM MDM Narrative Medical decision making narrative: Chest x-ray, lab work, bladder scan performed. Patient given 6 mg of IV Decadron. Repeat Covid test done here to confirm. Lab Data Labs: Laboratory Results - last 24 hr 04/02/21 04/02/21 21:00 21:00 WBC 3.9 L RBC 4.69 Hgb 14.3 Hct 44.1 MCV 94.0 MCH 30.5 MCHC 32.4 RDW Std Deviation 48.3 H RDW Coeff of Shruthi 14.0 Plt Count 155 MPV 10.4 Immature Gran % (Auto) 0.300 Neut % (Auto) 34.7 L Lymph % (Auto) 45.3 H Thayer % (Auto) 16.9 H Eos % (Auto) 2.3 Baso % (Auto) 0.5 Absolute Neuts (auto) 1.4 L Absolute Lymphs (auto) 1.77 Nucleated RBC % 0 Sodium 141 Potassium 4.2 Chloride 107 Carbon Dioxide 29.0 Anion Gap 5 BUN 25 H Creatinine 1.21 Estim Creat Clear Calc 54.36 Est GFR (MDRD) Af Amer 78 Est GFR (MDRD) Non-Af 64 BUN/Creatinine Ratio 20.7 H Glucose 112 H Calcium 8.9 Total Bilirubin 0.40 AST 24 ALT 28 Alkaline Phosphatase 68 Total Protein 8.0 Albumin 3.1 L Globulin 4.9 H Albumin/Globulin Ratio 0.6 L Radiography Chest X-Ray - ED: 1 View, Right Infiltrate and Left Infiltrate Diagnostic Testing: Clinical Impression(s) from Imaging Studies Chest X-Ray 04/02/21 21:30 IMPRESSION: Limited inspiratory effort. There appears to be increased bibasilar infiltrate/atelectasis. Electronically Signed: Franky Díaz DO at 21:43 EDT Tel [phone], Service support , Treatment and Re-Evaluation Comments:: Patient's vital signs of remained stable with O2 sats in the mid 90s on room air. He is not ambulatory at the alf. Covid test is positive. Blood work unremarkable. Chest x-ray shows chronic changes with bilateral lower lobe infiltrates. At this point I do feel patient be a good candidate for Decadron and monoclonal antibody referral. This was discussed with the caregiver at bedside. She did recommend that they called the nurse, Sarah Kauffman, to discuss the monoclonal antibody treatment. This will be placed on the referral. Discharge Plan Triage Chief Complaint: Shortness of Breath ED Provider: Halima Gallegos Dx/Rx/DC Orders Clinical Impression: COVID-19 Instructions: Coronavirus Disease 2019 (COVID-19): Caring for Yourself or Others Prescriptions: New dexamethasone [Decadron] 6 mg tablet 6 mg PO DAILY Qty: 10 RF: 0 No Action finasteride 5 mg tablet 5 mg PO DAILY RF: 0 omeprazole 40 mg capsule,delayed release(DR/EC) 40 mg PO DAILY RF: 0 buspirone 5 mg tablet 5 mg PO BID RF: 0 magnesium oxide 400 mg (241.3 mg magnesium) tablet 400 mg PO DAILY RF: 0 quetiapine [Seroquel] 25 mg tablet 25 mg PO BID RF: 0 oxcarbazepine 300 mg tablet 300 mg PO BID Qty: 60 RF: 6 bismuth subsalicylate 262 mg/15 mL suspension 262 mg PO Q6H RF: 0 simvastatin 40 MG tablet 40 mg PO QHS RF: 0 tamsulosin 0.4 MG capsule 0.8 mg PO QHS RF: 0 sitagliptin 100 MG tablet 100 mg PO DAILY RF: 0 ergocalciferol (vitamin D2) 1,250 mcg (50,000 unit) capsule 50,000 unit PO QMONTH RF: 0 guaifenesin [Mucus Relief ER] 600 mg tablet extended release 12hr PO RF: 0 divalproex 250 mg tablet,delayed release (DR/EC) 500 mg PO BID RF: 0 loratadine 10 mg tablet 10 mg PO DAILY PRN (Reason: Allergy Symptoms) RF: 0 aspirin 81 mg tablet,delayed release (DR/EC) 81 mg PO DAILY Qty: 30 RF: 6 Other Ambulatory Orders: COVID Outpatient Monoclonal Antibody Referral (Routine) Timeframe: 1 Day Facility: [facility] - Location: [facility] Ordered By: Dr. Halima Gallegos Primary Care Provider: Edilson Bhakta Referrals: Edilson Bhakta MD [Primary Care Provider] - 1-2 Weeks Disposition Disposition: Home, Self Care
[2021-04-02] MEDS: dexAMETHasone 4 MG/ML Vial 6 MG IV (21:00)
[2021-04-02 21:18] LABS: Absolute Lymphocyte Count 1.77 X10^3/uL (0.83-4.51); Absolute Neutrophil Count 1.4 X10^3/uL (2.0-7.7); Basophil# 0.02 X10^3/uL; Basophil% 0.5 % (0-1); Eosinophil# 0.09 X10^3/uL; Eosinophils% 2.3 % (0-5); Hematocrit 44.1 % (40-54); Hemoglobin 14.3 g/dL (13.0-16.5); Lymphocyte # 1.77 X10^3/ul (0.83-4.51); Lymphocyte % 45.3 % (19-41); Mean Corp Hgb Conc 32.4 g/dL (32-36); Mean Corpuscular Hgb 30.5 pg (27.0-32.0); Mean Platelet Vol. 10.4 fl (6.2-12.0); Monocyte# 0.66 X10^3/uL; Monocyte% 16.9 % (0-10); NRBC Flagged by Analyzer 0 % (0-5); Neutrophil # 1.36 X10^3/uL (2.7-7.7); Neutrophil % 34.7 % (47-70); Platelet Count 155 K/mm3 (150-450); RBC Distribution Width SD 48.3 fl (35.1-43.9); Red Blood Count 4.69 M/mm3 (4.6-6.2); White Blood Count 3.9 K/mm3 (4.4-11.0)
[2021-04-02 21:25] VITALS: BP 107/84; PULSE 72; RESP 15; TEMP 36.9
--- NOTE | 2021-04-02 21:30 | RAD_ITS ---
STUDY: X-RAY CHEST REASON FOR EXAM: Male, 61 years old. Cough. TECHNIQUE: Single AP portable view of the chest. COMPARISON: 01/04/2018. FINDINGS: The lungs are hyperexpanded. There is increased infiltrates at the lung bases when compared to prior study. There is no demonstrated pleural abnormality. Normal size heart. There is no change in the mediastinum, ashish, pulmonary arteries or aorta. No osseous changes. There is no demonstrated abnormality of the visualized soft tissue structures of the upper abdomen. RAD/Chest 1 View (Portable) IMPRESSION: Limited inspiratory effort. There appears to be increased bibasilar infiltrate/atelectasis. Electronically Signed: Franky Díaz DO at 21:43 EDT Tel [phone], Service support ,
[2021-04-02 21:33] LABS: ALB/GLOB Ratio 0.6 RATIO (0.9-2.4); AST(SGOT) 24 U/L (15-37); Alanine Aminotransfer ALT/SGPT 28 U/L (16-61); Albumin, Serum 3.1 g/dL (3.2-5.0); Alkaline Phosphatase 68 U/L (45-117); Anion Gap 5 (5-15); BUN 25 mg/dL (7-18); BUN/Creat Ratio 20.7 RATIO (10-20); Calcium,Total 8.9 mg/dL (8.5-10.1); Chloride 107 mmol/L (98-107); Creatinine, Serum 1.21 mg/dL (0.70-1.30); EST Glomerular Filtration Rate 64 mL/min (>60); Est Glom Filt Rate - Afr Amer 78 mL/min (>60); Estimated Creatinine Clearance 54.36 ml/min; Globulin 4.9 g/dL (2.2-4.2); Glucose 112 mg/dL (74-106); Potassium 4.2 mmol/L (3.5-5.1); Sodium Level 141 mmol/L (136-145)
[2021-04-02 22:17] VITALS: BP 92/72; PULSE 68; RESP 17; TEMP 36.7; O2SAT 94
[2021-04-02 23:06] VITALS: BP 98/62; PULSE 64; RESP 15; O2SAT 94
== END 2021-04-02 23:07 | disposition home or self-care (01) ==
PROVIDERS: Emergency Provider Emergency Medicine; PCP Family Medicine
DX: U07.1 COVID-19 (principal); N40.0 Benign prostatic hyperplasia without lower urinary tract symptoms; E11.9 Type 2 diabetes mellitus without complications; E78.2 Mixed hyperlipidemia; F73 Profound intellectual disabilities; K21.9 Gastro-esophageal reflux disease without esophagitis; N28.1 Cyst of kidney, acquired; J84.112 Idiopathic pulmonary fibrosis; Z66 Do not resuscitate; Z87.19 Personal history of other diseases of the digestive system; Z87.440 Personal history of urinary (tract) infections; Z79.4 Long term (current) use of insulin; Z79.82 Long term (current) use of aspirin; Z79.899 Other long term (current) drug therapy
CPT/HCPCS: 71045; 80053; 85025; 87040; 87426; 96374; 99285; A4216

== ENCOUNTER 2021-04-04 16:45 | Outpatient (CLI) | payer MEDICARE, MEDICAID, SELFPAY ==
[2021-04-04 17:12] VITALS: BP 90/58; PULSE 71; RESP 16; TEMP 36.5; O2SAT 96; BMI 21.2
[2021-04-04] MEDS: 0.9% Saline Lock 10 ML Syringe IV (17:19)
[2021-04-04 18:08] VITALS: BP 97/66; PULSE 67; RESP 16; TEMP 36.6; O2SAT 96
[2021-04-04 18:59] VITALS: BP 95/68; PULSE 97; RESP 16; TEMP 36.7; O2SAT 99
== END 2021-04-04 19:02 | disposition home or self-care (01) ==
LOC: MS3OUT 16:47 → MS3 16:48
PROVIDERS: PCP Family Medicine; Visit Provider Nurse Practitioner Adult Health
DX: Z23 Encounter for immunization (principal); U07.1 COVID-19
CPT/HCPCS: J7050; M0243; A4216; Q0244

== ENCOUNTER 2021-09-06 05:35 | Outpatient (CLI) | payer MEDICARE, MEDICAID, SELFPAY ==
[2021-09-06 05:46] LABS: Hematocrit 40.1 % (40-54); Hemoglobin 13.5 g/dL (13.0-16.5); Mean Corp Hgb Conc 33.7 g/dL (32-36); Mean Corpuscular Hgb 33.1 pg (27.0-32.0); Mean Corpuscular Volume 98.3 fL (80-94); Mean Platelet Vol. 10.7 fl (6.2-12.0); Platelet Count 193 K/mm3 (150-450); RBC Distribution Width CV 13.2 % (11.6-14.6); RBC Distribution Width SD 46.7 fl (35.1-43.9); Red Blood Count 4.08 M/mm3 (4.6-6.2); White Blood Count 5.2 K/mm3 (4.4-11.0)
[2021-09-06 06:09] LABS: Valproic Acid (Depakene) Level 80 ug/mL (50-100)
[2021-09-06 06:12] LABS: ALB/GLOB Ratio 0.7 RATIO (0.9-2.4); AST(SGOT) 21 U/L (15-37); Alanine Aminotransfer ALT/SGPT 26 U/L (16-61); Albumin, Serum 2.7 g/dL (3.2-5.0); Alkaline Phosphatase 59 U/L (45-117); Anion Gap 3 (5-15); BUN 24 mg/dL (7-18); Calcium,Total 8.3 mg/dL (8.5-10.1); Chloride 107 mmol/L (98-107); Creatinine, Serum 1.09 mg/dL (0.70-1.30); EST Glomerular Filtration Rate 73 mL/min (>60); Est Glom Filt Rate - Afr Amer 88 mL/min (>60); Globulin 3.9 g/dL (2.2-4.2); Glucose 84 mg/dL (74-106); Potassium 4.3 mmol/L (3.5-5.1); Protein, Total 6.6 g/dL (6.4-8.2); Sodium Level 139 mmol/L (136-145)
[2021-09-06 07:36] LABS: Hemoglobin A1c 5.8 % (3.8-5.6)
== END 2021-09-06 23:59 | disposition home or self-care (01) ==
LOC: LAB 05:36
PROVIDERS: PCP Family Medicine; Visit Provider Psychiatry & Neurology Child & Adolescent Psychiatry
DX: Z79.899 Other long term (current) drug therapy (principal)
CPT/HCPCS: 80053; 80164; 83036; 85027

== ENCOUNTER → 2021-10-17 | Outpatient (REF) | payer SELFPAY | END | disposition home or self-care (01) | LOC: LABSPEC 08:43 | PROVIDERS: PCP Family Medicine; Referring Provider Psychiatry & Neurology Child & Adolescent Psychiatry; Visit Provider Psychiatry & Neurology Child & Adolescent Psychiatry | DX: Z00.00 Encounter for general adult medical examination without abnormal findings (principal) ==

== ENCOUNTER → 2021-11-12 | Outpatient (CLI) | payer MEDICARE, MEDICAID, SELFPAY ==
[2021-11-12 08:58] LABS: Valproic Acid (Depakene) Level 86 ug/mL (50-100)
== END | disposition home or self-care (01) ==
LOC: LABSPEC 08:43
PROVIDERS: PCP Family Medicine; Visit Provider Psychiatry & Neurology Child & Adolescent Psychiatry
DX: Z79.899 Other long term (current) drug therapy (principal)
CPT/HCPCS: 80164

== ENCOUNTER → 2022-07-17 | Outpatient (CLI) | payer MEDICARE, MEDICAID, SELFPAY ==
[2022-07-17 20:10] LABS: Bacteria 0 SEEN /hpf (None Seen); Mucous, Urine 0 SEEN /hpf (<or=2+); Red Blood Cells-Urine 0 SEEN /hpf (0-5); Squamous Epithelial Cells - UA 0 SEEN /hpf (0-5)
[2022-07-17 20:20] LABS: Color, Urine Yellow (Yellow); Glucose, Dipstick Normal (Normal); Ketone-Dipstick Negative (Negative); Leukocyte Esterase-Dipstick 500 /ul (Negative); Nitrite-Dipstick Negative (Negative); Occult Blood-Urine 50 /ul (Negative); Protein-Dipstick 100 mg/dl (Negative); Urine Bilirubin Dipstick Negative (Negative); Urine Clarity Cloudy (Clear); Urine Urobilinogen 1 mg/dl (Normal)
[2022-07-17 20:34] LABS: White Blood Cells >100 SEEN /hpf (0-5)
== END | disposition home or self-care (01) ==
PROVIDERS: PCP Family Medicine; Visit Provider Family Medicine
DX: Z87.440 Personal history of urinary (tract) infections (principal); N39.0 Urinary tract infection, site not specified
CPT/HCPCS: 81001; 87077; 87086; 87088; 87186

== ENCOUNTER → 2022-09-01 | Outpatient (CLI) | payer MEDICARE, MEDICAID, SELFPAY ==
[2022-09-01 14:08] LABS: Absolute Lymphocyte Count 2.24 X10^3/uL (0.83-4.51); Absolute Neutrophil Count 2.4 X10^3/uL (2.0-7.7); Basophil# 0.05 X10^3/uL; Basophil% 0.9 % (0-1); Eosinophils% 3.6 % (0-5); Hematocrit 41.2 % (40-54); Hemoglobin 13.3 g/dL (13.0-16.5); Lymphocyte # 2.24 X10^3/ul (0.83-4.51); Lymphocyte % 40.1 % (19-41); Mean Corp Hgb Conc 32.3 g/dL (32-36); Mean Corpuscular Hgb 31.7 pg (27.0-32.0); Mean Corpuscular Volume 98.3 fL (80-94); Mean Platelet Vol. 11.5 fl (6.2-12.0); Monocyte# 0.69 X10^3/uL; Monocyte% 12.3 % (0-10); NRBC Flagged by Analyzer 0 % (0-5); Neutrophil # 2.38 X10^3/uL (2.7-7.7); Neutrophil % 42.6 % (47-70); Platelet Count 184 K/mm3 (150-450); RBC Distribution Width CV 13.5 % (11.6-14.6); RBC Distribution Width SD 48.7 fl (35.1-43.9); Red Blood Count 4.19 M/mm3 (4.6-6.2); White Blood Count 5.6 K/mm3 (4.4-11.0)
[2022-09-01 14:18] LABS: Valproic Acid (Depakene) Level 84 ug/mL (50-100)
[2022-09-01 14:19] LABS: ALB/GLOB Ratio 0.6 RATIO (0.9-2.4); AST(SGOT) 21 U/L (15-37); Alanine Aminotransfer ALT/SGPT 24 U/L (16-61); Albumin, Serum 2.6 g/dL (3.2-5.0); Alkaline Phosphatase 72 U/L (45-117); Anion Gap 4 (5-15); BUN 21 mg/dL (7-18); BUN/Creat Ratio 16.7 RATIO (10-20); Calcium,Total 8.7 mg/dL (8.5-10.1); Chloride 103 mmol/L (98-107); Creatinine, Serum 1.26 mg/dL (0.70-1.30); EST Glomerular Filtration Rate 61 mL/min (>60); Est Glom Filt Rate - Afr Amer 74 mL/min (>60); Globulin 4.6 g/dL (2.2-4.2); Glucose 68 mg/dL (74-106); Potassium 4.4 mmol/L (3.5-5.1); Protein, Total 7.2 g/dL (6.4-8.2); Sodium Level 137 mmol/L (136-145)
[2022-09-01 14:56] LABS: Hemoglobin A1c 5.8 % (3.8-5.6)
== END | disposition home or self-care (01) ==
LOC: LABSPEC 13:54
PROVIDERS: PCP Family Medicine; Visit Provider Psychiatry & Neurology Child & Adolescent Psychiatry
DX: Z79.899 Other long term (current) drug therapy (principal)
CPT/HCPCS: 80053; 80164; 83036; 85025